=== PATIENT | female | born 1995 | race Two or more races ===

== ENCOUNTER 2020-10-01 13:38 | Emergency (ER) | payer MEDICAID ==
[~2020-10-01] VITALS: Ht 160 cm; Wt 83.0 kg
--- NOTE | 2020-10-01 13:49 | NUR ---
Pt from [place] Addendum: 10/01/20 at 1350 by KSHARP Pt from [place] for uncontrolled epistaxis. Arrives with [facility], bleeding currently stopped.
--- NOTE | 2020-10-01 14:17 | NUR ---
BREAK RN: PT RESTING IN ROOM. NO ACUTE DISTRESS NOTED. CALL LIGHT IN PLACE. WILL CONTINUE TO MONITOR WHILE PRIMARY RN IS ON BREAK.
--- NOTE | 2020-10-01 14:30 | NUR ---
BREAK RN: REPORT GIVEN TO JEANNINE ALEXANDER
[2020-10-01] MEDS ORDERED: OXYcodone/APAP 10/325MG TABLET PO ONE (16:30)
--- NOTE | 2020-10-01 16:42 | NUR ---
Pt to be dc'd, waiting for ride.
[2020-10-01] MEDS ORDERED: OXYcodone/APAP 10/325MG TABLET ONE (16:52)
[2020-10-01 17:31] VITALS: BP 122/77
--- NOTE | 2020-10-01 17:32 | NUR ---
Pt states improvement sheela sierra. Sherly.
[2020-10-03] MEDS ORDERED: CEPH-368 PO (08:10)
[2020-10-03] MEDS ORDERED: DOCU-131 PO (08:11)
[2020-10-03] MEDS ORDERED: OXYC5TAB3 PO (08:11)
[2020-10-03] MEDS ORDERED: OXYC-302 PO (09:00)
== END 2020-10-01 17:34 | disposition home or self-care (01) ==
LOC: ED 17:15
DX: R04.0 Epistaxis (principal)
CPT/HCPCS: 30901; 99284